=== PATIENT | female | born 1935 | race Hispanic/Latino ===

== ENCOUNTER 2021-08-13 17:55 | Inpatient (IN) | payer OTHER ==
[~2021-08-13] VITALS: Ht 154.9 cm; Wt 44.5 kg
[~2021-08-13 17:55] MED LIST: ALEN70TA2 PO; APIX2.5T PO; ATOR40TA71 PO; CALC-1009 PO; ERGO50CA PO; FERS325 PO; FURO-151 PO; HONE44PA TP; METO50TA9 PO; PANT40TA PO; SACU1TAB PO
[2021-08-13] MEDS ORDERED: 0.9%NACL 1000ML 1,000 ML IV SCH (19:30)
[2021-08-13] MEDS ORDERED: METRONIDAZOLE 500MG/100ML BAG 100 ML IV SCH (19:30)
[2021-08-13] MEDS ORDERED: POTASSIUM CHLORIDE 10% ELIXIR 20 MEQ/15 ML UDCUP PO PRN (19:30)
[2021-08-13] MEDS ORDERED: LACTULOSE 20 GM/30 ML UDCUP PO PRN (19:30)
[2021-08-13] MEDS ORDERED: LIDOCAINE HCL-MPF 1% 2ML VIAL IV PRN (19:30)
[2021-08-13] MEDS ORDERED: POTASSIUM CHLORIDE 20MEQ/100ML 100 ML IV PRN (19:30)
[2021-08-13] MEDS ORDERED: CLINDAMYCIN IVPB 600MG/50ML 50 ML IV SCH (19:30)
[2021-08-13] MEDS ORDERED: HYDRALAZINE 20MG/ML VIAL IV PRN (19:30)
[2021-08-13] MEDS ORDERED: KCL 20 MEQ ERTAB PO PRN (19:30)
[2021-08-13] MEDS ORDERED: ACETAMINOPHEN 325 MG TAB PO PRN (19:30)
[2021-08-13] MEDS ORDERED: ONDANSETRON 4MG INJ IV PRN (19:30)
[2021-08-13 20:21] LABS: BASOPHILS % (AUTO) 0.3 % (0.0-5.0); EOSINOPHILS % (AUTO) 0.6 % (0.0-8.0); HEMATOCRIT 33.2 % (36-48); LYMPHOCYTES % (AUTO) 6.9 % (21.0-51.0); MEAN CORPUSCULAR HEMOGLOBIN 29.5 pg (27.0-33.0); MEAN CORPUSCULAR HGB CONC 32.8 g/dL (32.0-36.0); MONOCYTES % (AUTO) 3.2 % (3.0-13.0); NEUTROPHILS % (AUTO) 88.4 % (40.0-77.0); PLATELET COUNT (AUTO) 261 K/uL (130-400); RED BLOOD CELL COUNT(AUTO) 3.69 MIL/uL (4.00-5.50); RED CELL DISTRIBUTION WIDTH 16.9 % (11.0-15.5); WHITE BLOOD COUNT (AUTO) 28.1 K/uL (4.8-10.8)
[2021-08-13 20:34] LABS: % IRON SATURATION 12.8 % (22-44); HEMOGLOBIN A1C 8.4 % (4.0-6.0)
[2021-08-13] MEDS: FAMOTIDINE 20MG TAB PO SCH (20:34)
[2021-08-13] MEDS: CLINDAMYCIN IVPB 600MG/50ML 50 ML IV SCH (20:34)
[2021-08-13] MEDS: 0.9%NACL 1000ML 1,000 ML IV SCH (20:34)
[2021-08-13] MEDS: INSULIN HUMULIN R 100 UNIT/ML 3ML SQ SCH (20:37)
[2021-08-13 20:40] LABS: INR 1.38 (0.85-1.15); PROTHROMBIN TIME 14.6 SEC (9.6-11.6)
[2021-08-13 20:41] LABS: PARTIAL THROMBOPLASTIN TIME 44.1 SEC (26.3-35.5)
[2021-08-13 21:09] LABS: ALBUMIN 2.3 g/dL (3.5-5.0); BILIRUBIN,DIRECT 0.2 mg/dL (0.0-0.3); BILIRUBIN,TOTAL 0.4 mg/dL (0.2-1.0); CREATININE 1.9 mg/dL (0.5-1.5); MAGNESIUM 1.9 mg/dL (1.80-2.40); PHOSPHORUS 2.9 mg/dL (2.5-4.9); THYROID STIMULATING HORMONE 2.82 uIU/mL (0.36-3.74); TOTAL PROTEIN, SERUM 6.6 g/dL (6.0-8.3)
[2021-08-13 21:18] LABS: CRP QUANTITATIVE 262.3 mg/L (0.00-9.0)
[2021-08-13 21:22] LABS: ERYTHROCYTE SEDIMENTATION RATE 67 MM/HR (0-30)
[2021-08-13] MEDS: METRONIDAZOLE 500MG/100ML BAG 100 ML IV SCH (21:54)
[2021-08-13 22:05] LABS: APPEARANCE,URINE Turbid (CLEAR); BILIRUBIN,URINE Negative (NEGATIVE); COLOR,URINE Yellow (YELLOW); GLUCOSE, URINE (UA) Negative (NEGATIVE); KETONES,URINE Negative (NEGATIVE); LEUKOCYTE ESTERASE ,URINE Large (NEGATIVE); NITRATE,URINE Negative (NEGATIVE); OCCULT BLOOD,URINE Small (NEGATIVE); PH,URINE 6.5 (5.0-8.0); PROTEIN,URINE POS 2+ mg/dL (NEGATIVE)
[2021-08-13 22:10] LABS: BACTERIA,URINE Moderate /HPF (None Seen); MUCUS,URINE Few LPF (None Seen); SQUAMOUS EPITHELIAL CELL,UR Few /HPF (0-2); WBC,URINE 51-100 /HPF (0-1)
[2021-08-13 22:40] VITALS: BP 117/57
[2021-08-13] MEDS: ACETAMINOPHEN 325 MG TAB PO PRN (23:38)
[2021-08-14] VITALS (8 sets, daily range): BP systolic 103–119; BP diastolic 41–61
[2021-08-14] MEDS: CLINDAMYCIN IVPB 600MG/50ML 50 ML IV SCH ×3 (04:08→21:50)
[2021-08-14] MEDS ORDERED: CLOP75TA14 PO (04:20)
[2021-08-14] MEDS ORDERED: OMEP20CA12 PO (04:20)
[2021-08-14 05:07] LABS: BASOPHILS % (AUTO) 0.2 % (0.0-5.0); EOSINOPHILS % (AUTO) 0.3 % (0.0-8.0); HEMATOCRIT 28.3 % (36-48); LYMPHOCYTES % (AUTO) 4.5 % (21.0-51.0); MEAN CORPUSCULAR HEMOGLOBIN 28.6 pg (27.0-33.0); MEAN CORPUSCULAR HGB CONC 32.5 g/dL (32.0-36.0); MEAN CORPUSCULAR VOLUME 87.9 fL (79-99); MONOCYTES % (AUTO) 4.7 % (3.0-13.0); NEUTROPHILS % (AUTO) 89.4 % (40.0-77.0); PLATELET COUNT (AUTO) 229 K/uL (130-400); RED BLOOD CELL COUNT(AUTO) 3.22 MIL/uL (4.00-5.50); RED CELL DISTRIBUTION WIDTH 16.6 % (11.0-15.5); WHITE BLOOD COUNT (AUTO) 26.5 K/uL (4.8-10.8)
[2021-08-14] MEDS: INSULIN HUMULIN R 100 UNIT/ML 3ML SQ SCH ×4 (05:12→20:52)
[2021-08-14] MEDS: METRONIDAZOLE 500MG/100ML BAG 100 ML IV SCH ×3 (05:13→20:39)
[2021-08-14] MEDS: 0.9%NACL 1000ML 1,000 ML IV SCH ×2 (05:24→15:30)
[2021-08-14 05:33] LABS: CREATININE 1.8 mg/dL (0.5-1.5); POTASSIUM 3.7 mmol/L (3.5-5.1)
[2021-08-14] MEDS: IPRATROPIUM 0.5 MG/2.5 ML INH IH SCH ×4 (06:11→23:51)
[2021-08-14] MEDS: FAMOTIDINE 20MG TAB PO SCH (09:45)
[2021-08-14] MEDS: ENOXAPARIN SODIUM 30 MG/0.3 ML SQ SCH (09:46)
[2021-08-14] MEDS ORDERED: NACL IV ONE (20:30)
[2021-08-14] MEDS ORDERED: METOPROLOL TARTRATE 1 MG/ML 5ML VIAL IV ONE (20:30)
[2021-08-14] MEDS: METOPROLOL TARTRATE 1 MG/ML 5ML VIAL IV ONE ×2 (22:07→22:08)
[2021-08-14] MEDS ORDERED: DIGOXIN 250 MCG/ML 2ML AMP IV ONE (22:30)
[2021-08-14] MEDS ORDERED: MIDODRINE HCL 5 MG TABLET PO STA (23:13)
[2021-08-14] MEDS: ACETAMINOPHEN 325 MG TAB PO PRN (23:15)
[2021-08-14] MEDS ORDERED: AMIODARONE 150MG VIAL 150 MG in DEXTROSE 5%-WATER 100 ML IV SCH (23:30)
[2021-08-14] MEDS ORDERED: AMIODARONE 900MG VIAL 360 MG in DEXTROSE 5%-WATER 200 ML IV SCH (23:30)
[2021-08-14] MEDS ORDERED: MIDODRINE HCL 5 MG TABLET ONE ×2 (23:35)
[2021-08-15] VITALS (7 sets, daily range): BP systolic 94–124; BP diastolic 43–76
[2021-08-15] MEDS: 0.9%NACL 1000ML 1,000 ML IV SCH ×3 (01:30→21:43)
[2021-08-15 04:49] LABS: HEMATOCRIT 29.9 % (36-48); MEAN CORPUSCULAR HGB CONC 31.8 g/dL (32.0-36.0); MEAN CORPUSCULAR VOLUME 88.2 fL (79-99); RED BLOOD CELL COUNT(AUTO) 3.39 MIL/uL (4.00-5.50); RED CELL DISTRIBUTION WIDTH 16.8 % (11.0-15.5); WHITE BLOOD COUNT (AUTO) 25.2 K/uL (4.8-10.8)
[2021-08-15 05:09] LABS: ALBUMIN 1.6 g/dL (3.5-5.0); BILIRUBIN,TOTAL 0.4 mg/dL (0.2-1.0); CREATININE 1.9 mg/dL (0.5-1.5); MAGNESIUM 1.8 mg/dL (1.80-2.40); POTASSIUM 5.1 mmol/L (3.5-5.1); TOTAL PROTEIN, SERUM 5.1 g/dL (6.0-8.3)
[2021-08-15] MEDS: CLINDAMYCIN IVPB 600MG/50ML 50 ML IV SCH ×3 (05:21→19:59)
[2021-08-15] MEDS: METRONIDAZOLE 500MG/100ML BAG 100 ML IV SCH ×3 (05:21→20:45)
[2021-08-15] MEDS: INSULIN HUMULIN R 100 UNIT/ML 3ML SQ SCH ×4 (05:51→19:57)
[2021-08-15] MEDS ORDERED: MAGNESIUM 2GM PREMIX 50ML 50 ML IV PRN (06:00)
[2021-08-15] MEDS ORDERED: MAGNESIUM 2GM PREMIX 50ML 0 ML IV ONE (06:21)
[2021-08-15] MEDS: IPRATROPIUM 0.5 MG/2.5 ML INH IH SCH ×4 (07:06→23:26)
[2021-08-15] MEDS: METOPROLOL SUCCINATE 50 MG TAB.SR.24H PO SCH (09:05)
[2021-08-15] MEDS: FAMOTIDINE 20MG TAB PO SCH (09:05)
[2021-08-15] MEDS: ENOXAPARIN SODIUM 30 MG/0.3 ML SQ SCH (09:06)
[2021-08-15] MEDS: SODIUM HYPOCHLORITE 0.125% 473 ML SOLUTION TP SCH (19:59)
[2021-08-16 03:19] VITALS: BP 112/44
[2021-08-16] MEDS: CLINDAMYCIN IVPB 600MG/50ML 50 ML IV SCH ×3 (04:14→21:14)
[2021-08-16] MEDS: METRONIDAZOLE 500MG/100ML BAG 100 ML IV SCH ×3 (05:12→21:14)
[2021-08-16] MEDS: INSULIN HUMULIN R 100 UNIT/ML 3ML SQ SCH ×4 (06:09→21:25)
[2021-08-16] MEDS: IPRATROPIUM 0.5 MG/2.5 ML INH IH SCH ×3 (06:56→18:36)
[2021-08-16 07:20] VITALS: BP 115/42
[2021-08-16] MEDS: 0.9%NACL 1000ML 1,000 ML IV SCH ×3 (08:41→21:16)
[2021-08-16] MEDS: ENOXAPARIN SODIUM 30 MG/0.3 ML SQ SCH (08:41)
[2021-08-16] MEDS: FAMOTIDINE 20MG TAB PO SCH (08:41)
[2021-08-16] MEDS: METOPROLOL SUCCINATE 50 MG TAB.SR.24H PO SCH (08:41)
[2021-08-16] MEDS: SODIUM HYPOCHLORITE 0.125% 473 ML SOLUTION TP SCH (08:44)
[2021-08-16 11:20] VITALS: BP 132/61
[2021-08-16 15:25] VITALS: BP 103/34
[2021-08-16 19:41] VITALS: BP 131/44
[2021-08-16 23:17] VITALS: BP 126/50
[2021-08-17] VITALS (26 sets, daily range): BP systolic 111–153; BP diastolic 30–81
[2021-08-17] MEDS: IPRATROPIUM 0.5 MG/2.5 ML INH IH SCH ×5 (00:41→23:18)
[2021-08-17] MEDS: METRONIDAZOLE 500MG/100ML BAG 100 ML IV SCH ×3 (04:06→21:43)
[2021-08-17] MEDS: CLINDAMYCIN IVPB 600MG/50ML 50 ML IV SCH ×3 (04:06→20:44)
[2021-08-17] MEDS: INSULIN HUMULIN R 100 UNIT/ML 3ML SQ SCH ×4 (05:28→20:44)
[2021-08-17 07:29] LABS: HEMATOCRIT 28.7 % (36-48); MEAN CORPUSCULAR HEMOGLOBIN 28.8 pg (27.0-33.0); MEAN CORPUSCULAR HGB CONC 33.1 g/dL (32.0-36.0); PLATELET COUNT (AUTO) 284 K/uL (130-400); RED CELL DISTRIBUTION WIDTH 16.9 % (11.0-15.5); WHITE BLOOD COUNT (AUTO) 17.3 K/uL (4.8-10.8)
[2021-08-17 07:37] LABS: CREATININE 1.4 mg/dL (0.5-1.5); POTASSIUM 4.6 mmol/L (3.5-5.1)
[2021-08-17] MEDS: ENOXAPARIN SODIUM 30 MG/0.3 ML SQ SCH (07:49)
[2021-08-17] MEDS: FAMOTIDINE 20MG TAB PO SCH (07:49)
[2021-08-17 08:13] LABS: BASOPHILS % (AUTO) 0.4 % (0.0-5.0); EOSINOPHILS % (AUTO) 2.3 % (0.0-8.0); LYMPHOCYTES % (AUTO) 11.4 % (21.0-51.0); MONOCYTES % (AUTO) 7.7 % (3.0-13.0); NEUTROPHILS % (AUTO) 77.2 % (40.0-77.0)
[2021-08-17] MEDS: METOPROLOL SUCCINATE 50 MG TAB.SR.24H PO SCH (09:18)
[2021-08-17] MEDS: SODIUM HYPOCHLORITE 0.125% 473 ML SOLUTION TP SCH (09:18)
[2021-08-17] MEDS ORDERED: LIDOCAINE PF 100MG/5ML (2%) SYRINGE 5ML ONE (11:17)
[2021-08-17] MEDS ORDERED: PROPOFOL 10 MG/ML 20ML VIAL IV ONE (11:17)
[2021-08-17] MEDS ORDERED: ONDANSETRON 4MG INJ ONE (11:17)
[2021-08-17] MEDS ORDERED: FENTANYL CITRATE PF 50 MCG/1 ML 2ML VIAL ONE (11:18)
[2021-08-17] MEDS ORDERED: ROCURONIUM 10MG/1ML SYR 10 MG/ML ML ONE (11:18)
[2021-08-17] MEDS ORDERED: LIDOCAINE HCL/EPINEPHRINE 30 ML VIAL IJ ONE (11:18)
[2021-08-17] MEDS ORDERED: BUPIVACAINE/PF 0.25% 30ML VIAL IJ ONE (11:19)
[2021-08-17] MEDS ORDERED: CEFAZOLIN SODIUM 1 GM VIAL ONE (11:19)
[2021-08-17] MEDS ORDERED: EPHEDRINE SULFATE 50 MG/ML AMPULE ONE (11:40)
[2021-08-17] MEDS ORDERED: ESMOLOL HCL 10 MG/ML 10 ML VIAL ONE (12:05)
[2021-08-17] MEDS ORDERED: GLYCOPYRROLATE 1 MG/5 ML SYRINGE ONE (12:12)
[2021-08-17] MEDS ORDERED: NEOSTIGMINE 5MG/5ML SYR IV ONE (12:12)
[2021-08-17] MEDS: 0.9%NACL 1000ML 1,000 ML IV SCH ×2 (12:30→13:56)
[2021-08-17] MEDS ORDERED: ACETAMINOPHEN WITH CODEINE 1 TAB TAB PO PRN (14:00)
[2021-08-17] MEDS ORDERED: HYDROMORPHONE 0.5 MG SYG (0.5MG/0.5ML) IVP PRN (14:00)
[2021-08-18] MEDS: 0.9%NACL 1000ML 1,000 ML IV SCH ×2 (01:47→09:30)
[2021-08-18 04:00] VITALS: BP 120/49
[2021-08-18] MEDS: CLINDAMYCIN IVPB 600MG/50ML 50 ML IV SCH ×2 (04:09→12:57)
[2021-08-18] MEDS: METRONIDAZOLE 500MG/100ML BAG 100 ML IV SCH ×2 (04:35→14:10)
[2021-08-18 05:00] LABS: HEMATOCRIT 28.5 % (36-48); MEAN CORPUSCULAR HEMOGLOBIN 28.6 pg (27.0-33.0); MEAN CORPUSCULAR HGB CONC 31.9 g/dL (32.0-36.0); MEAN CORPUSCULAR VOLUME 89.6 fL (79-99); RED BLOOD CELL COUNT(AUTO) 3.18 MIL/uL (4.00-5.50); RED CELL DISTRIBUTION WIDTH 17.1 % (11.0-15.5); WHITE BLOOD COUNT (AUTO) 13.8 K/uL (4.8-10.8)
[2021-08-18 05:17] LABS: CREATININE 1.1 mg/dL (0.5-1.5); MAGNESIUM 1.6 mg/dL (1.80-2.40); POTASSIUM 4.3 mmol/L (3.5-5.1)
[2021-08-18] MEDS: INSULIN HUMULIN R 100 UNIT/ML 3ML SQ SCH ×3 (05:34→16:30)
[2021-08-18 08:11] VITALS: BP 115/40
[2021-08-18] MEDS: SODIUM HYPOCHLORITE 0.125% 473 ML SOLUTION TP SCH (09:00)
[2021-08-18] MEDS: FAMOTIDINE 20MG TAB PO SCH (09:53)
[2021-08-18] MEDS: ENOXAPARIN SODIUM 30 MG/0.3 ML SQ SCH (09:55)
[2021-08-18] MEDS: METOPROLOL SUCCINATE 50 MG TAB.SR.24H PO SCH (09:55)
[2021-08-18] MEDS: IPRATROPIUM 0.5 MG/2.5 ML INH IH SCH (11:31)
[2021-08-18 12:00] VITALS: BP 132/59
[2021-08-18 16:00] VITALS: BP 150/78
== END 2021-08-18 18:10 | DRG 628 ==
LOC: EDH 17:55 → EDHIP 17:56 → 3AH 23:10
PROVIDERS: ADMIT Internal Medicine Pulmonary Disease; ATTEND Internal Medicine Pulmonary Disease
PROC: 0QB10ZZ Excision of Sacrum, Open Approach (ICD-10-PCS; principal; 2021-08-17 11:50)
DX: E86.0 Dehydration (principal); L89.154 Pressure ulcer of sacral region, stage 4; E43 Unspecified severe protein-calorie malnutrition; N39.0 Urinary tract infection, site not specified; R64 Cachexia; Z68.1 Body mass index [BMI] 19.9 or less, adult; L89.150 Pressure ulcer of sacral region, unstageable; M81.0 Age-related osteoporosis without current pathological fracture; E11.9 Type 2 diabetes mellitus without complications; R53.81 Other malaise; E78.5 Hyperlipidemia, unspecified; I11.0 Hypertensive heart disease with heart failure; I48.91 Unspecified atrial fibrillation; Z20.822 Contact with and (suspected) exposure to COVID-19; D72.829 Elevated white blood cell count, unspecified; I50.9 Heart failure, unspecified; B96.20 Unspecified Escherichia coli [E. coli] as the cause of diseases classified elsewhere; B96.1 Klebsiella pneumoniae [K. pneumoniae] as the cause of diseases classified elsewhere; R91.8 Other nonspecific abnormal finding of lung field; I25.2 Old myocardial infarction; Z88.0 Allergy status to penicillin; Z79.01 Long term (current) use of anticoagulants; Z79.02 Long term (current) use of antithrombotics/antiplatelets; Z79.83 Long term (current) use of bisphosphonates; Z79.899 Other long term (current) drug therapy; Z86.73 Personal history of transient ischemic attack (TIA), and cerebral infarction without residual deficits
CPT/HCPCS: 36415; 71045; 80048; 80053; 80076; 81001; 82550; 82948; 83036; 83540; 83550; 83605; 83735; 83874; 84100; 84145; 84443; 84484; 85025; 85027; 85610; 85651; 85730; 86140; 87040; 87070; 87077; 87088; 87186; 87205; 87635; 88304; 92610; 93005; 94640; 94664; 97039; G0378; J0690; J1160; J1650; J1815; J2001; J2405; J2704; J2710; J3010; J3475; J3490; J7030